=== PATIENT | male | born 1970 | race Two or more races ===

== ENCOUNTER 2019-04-13 16:30 | Emergency (ER) | payer MEDICAID ==
[~2019-04-13] VITALS: Ht 172.7 cm; Wt 83.0 kg
--- NOTE | 2019-04-13 17:38 | NUR ---
Patient to room from lobby at this time
[2019-04-13 18:00] VITALS: BP 125/81
--- NOTE | 2019-04-13 18:00 | NUR ---
pt upright on gurney awake & comfortable, responds approp to staff, NAD, comfort mreasures provided, at BS, call light within reach
[2019-04-13 18:27] LABS: BASOPHILS # (AUTO) 0.04 x10^3/uL (0-0.1); BASOPHILS % (AUTO) 1 % (0-1); EOSINOPHILS # (AUTO) 0.22 x10^3/uL (0-0.4); EOSINOPHILS % (AUTO) 3 % (1-7); LYMPHOCYTES # (AUTO) 1.17 x10^3/uL (1-3.4); LYMPHOCYTES % (AUTO) 16 % (22-44); MD NO; MEAN CORPUSCULAR HEMOGLOBIN 30.7 pg (27.5-34.5); MEAN CORPUSCULAR HGB CONC 32.7 g/dL (33.2-36.2); MONOCYTES # (AUTO) 0.56 x10^3/uL (0.2-0.8); MONOCYTES % (AUTO) 8 % (2-9); NEUTROPHILS # (AUTO) 5.16 x10^3/uL (1.8-6.8); NEUTROPHILS % (AUTO) 72 % (42-75); PLATELET COUNT 187 x10^3/uL (130-400); RED BLOOD COUNT 5.17 x10^6/uL (4.38-5.82); RED CELL DISTRIBUTION WIDTH 13.3 % (9.4-14.8)
[2019-04-13 18:32] LABS: ALBUMIN 3.7 g/dL (3.4-5.0); ANION GAP 7 mmol/L (5-15); CALCIUM 8.6 mg/dL (8.5-10.1); CHLORIDE 111 mmol/L (98-107)
[2019-04-13 18:35] LABS: TROPONIN I < 0.015 ng/mL (0.000-0.045)
--- NOTE | 2019-04-13 18:45 | NUR ---
Patient given discharge instructions and they have confirmed that they understand the instructions. Patient ambulatory with steady gait.
== END 2019-04-13 18:50 | disposition home or self-care (01) ==
LOC: ED 18:01
DX: J20.9 Acute bronchitis, unspecified (principal); Z86.19 Personal history of other infectious and parasitic diseases; Z87.891 Personal history of nicotine dependence; N28.9 Disorder of kidney and ureter, unspecified
CPT/HCPCS: 36415; 71045; 80048; 82040; 84484; 85025; 93005; 99284

== ENCOUNTER 2019-10-20 07:59 | Emergency (ER) | payer MEDICAID ==
[~2019-10-20] VITALS: Ht 172.7 cm; Wt 85.5 kg
[~2019-10-20 07:59] MED LIST: ALLERGY PO
--- NOTE | 2019-10-20 08:10 | NUR ---
THIS IS A 49 YO MALE COMING IN FOR LOWER ABDOMINAL PAIN, DIARRHEA AND VOMITING X1 DAY. PATIENT STATES HE WAS FEELING NAUSEOUS BEFORE DINNER YESTERDAY, THEN AFTER DINNNER VOMITED AND HAD DIARRHEA. PATIENT DENIES ANY FLU LIKE SYMPTOMS, BUT HAS HAD A RECENT COLD WITH CONGESTION AND COUGH. DENIES ANY SURGICAL HX, HX OF HEP C. PATIENT PLACED ON CONTINUOUS SPO2 AT 96%, CYCLE BP Q1HR. DENIES FURTHER NEEDS AT THIS TIME. CALL LIGHT IN REACH.
[2019-10-20] MEDS ORDERED: FAMOTIDINE 20 MG/2 ML ONE (08:24)
[2019-10-20] MEDS ORDERED: MORPHINE SULFATE 4 MG/ML, 1ML ONE (08:24)
[2019-10-20] MEDS ORDERED: METOCLOPRAMIDE 5 MG/ML, 2ML ONE (08:24)
[2019-10-20] MEDS ORDERED: FAMOTIDINE 20 MG/2 ML IV ONE (08:30)
[2019-10-20] MEDS ORDERED: SODIUM CHLORIDE 0.9% 1,000ML IVBOLUS ONE (08:30)
[2019-10-20] MEDS ORDERED: ONDANSETRON 2MG/ML, 2ML IVPush ONE (08:30)
--- NOTE | 2019-10-20 08:38 | NUR ---
STARTED IV, PT TOLERATED WELL. MEDICATED PER ORDERS. PT REFUSED MORPHINE AT THIS TIME. EXPLAINED PLAN OF CARE AND NEED FOR URINE. PT VERBALIZED UNDERSTANDING, VERBALIZED NO NEEDS AT THIS TIME. CALL LIGHT WITHIN PLACE.
[2019-10-20 08:41] LABS: MEAN CORPUSCULAR HEMOGLOBIN 30.5 pg (27.5-34.5); MEAN CORPUSCULAR HGB CONC 32.8 g/dL (33.2-36.2); MEAN CORPUSCULAR VOLUME 92.8 fL (81-97); MEAN PLATELET VOLUME 8.4 fL (7.4-10.4); PLATELET COUNT 160 x10^3/uL (130-400); RED BLOOD COUNT 5.26 x10^6/uL (4.38-5.82); RED CELL DISTRIBUTION WIDTH 13.5 % (9.4-14.8)
[2019-10-20 08:49] LABS: ALBUMIN 3.7 g/dL (3.4-5.0); ANION GAP 3 mmol/L (5-15); CALCIUM 8.5 mg/dL (8.5-10.1); CHLORIDE 114 mmol/L (98-107)
[2019-10-20 08:52] LABS: ALANINE AMINOTRANSFERASE 29 U/L (12-78); ALKALINE PHOSPHATASE 71 U/L (45-117); BILIRUBIN,TOTAL 0.9 mg/dL (0.2-1.0); CREATININE 1.22 mg/dL (0.7-1.3); TOTAL PROTEIN 7.7 g/dL (6.4-8.2)
[2019-10-20 09:07] LABS: BASOPHILS # (AUTO) 0.02 x10^3/uL (0-0.1); BASOPHILS % (AUTO) 0 % (0-1); EOSINOPHILS # (AUTO) 0.14 x10^3/uL (0-0.4); EOSINOPHILS % (AUTO) 2 % (1-7); LYMPHOCYTES # (AUTO) 0.33 x10^3/uL (1-3.4); LYMPHOCYTES % (AUTO) 5 % (22-44); MD SCAN; MONOCYTES # (AUTO) 0.35 x10^3/uL (0.2-0.8); MONOCYTES % (AUTO) 5 % (2-9); NEUTROPHILS # (AUTO) 6.02 x10^3/uL (1.8-6.8); NEUTROPHILS % (AUTO) 88 % (42-75)
--- NOTE | 2019-10-20 09:13 | NUR ---
PATIENT RESTING ON GURNEY, FAMILY AT BEDSIDE, CALL LIGHT IN REACH, DENIES FURTHER NEEDS AT THIS TIME.
--- NOTE | 2019-10-20 09:16 | NUR ---
ULTRASOUND IN ROOM
--- NOTE | 2019-10-20 09:47 | NUR ---
PATIENT AMBULATED TO RESTROOM TO GET UA. BACK ON [facility], ON CONTINUOUS SPO2 AT 97%, CYCLE BP Q1 HR. NEEDS ADDRESSED.
[2019-10-20] MEDS: MORPHINE SULFATE 4 MG/ML, 1ML IVPush PRN ×2 (09:52→10:12)
[2019-10-20] MEDS ORDERED: MAALOX/HYOSCYAMINE/LIDOCAINE 45 ML BTL ONE (09:54)
--- NOTE | 2019-10-20 09:58 | NUR ---
PATIETN MEDICATED PER EMAR, TOLERATED WELL. CALL LIGHT IN REACH, DENIES FURTHER NEEDS.
[2019-10-20] MEDS ORDERED: MAALOX/HYOSCYAMINE/LIDOCAINE 45 ML BTL PO ONE (10:00)
[2019-10-20 10:05] LABS: MICROSCOPIC AUTO
[2019-10-20 10:07] LABS: CULTURE INDICATED? YES
--- NOTE | 2019-10-20 10:40 | NUR ---
Patient given discharge instructions and they have confirmed that they understand the instructions. Patient ambulatory with steady gait.
[2019-10-20 10:41] VITALS: BP 93/54
== END 2019-10-20 10:42 | disposition home or self-care (01) ==
LOC: ED 08:21
DX: K52.9 Noninfective gastroenteritis and colitis, unspecified (principal); Z86.19 Personal history of other infectious and parasitic diseases
CPT/HCPCS: 36415; 76700; 80053; 81001; 83690; 85025; 87086; 96361; 96374; 96375; 99284; J2405; J3490; J7030

== ENCOUNTER 2020-01-03 13:55 | Emergency (ER) | payer SELFPAY ==
[~2020-01-03] VITALS: Ht 172.7 cm; Wt 87.0 kg
[2020-01-03 14:04] VITALS: BP 129/81
--- NOTE | 2020-01-03 14:13 | NUR ---
L flank pain 4/10 & dark urine. No nausea/chills/dysuria. No hx kidney stones. Pt provided w/ urine cup & instructed to provide sample.
[2020-01-03 14:47] LABS: MICROSCOPIC NOT IND
[2020-01-03 14:57] LABS: CULTURE INDICATED? NO
[2020-01-03 15:01] LABS: ALANINE AMINOTRANSFERASE 24 U/L (12-78); ALBUMIN 3.6 g/dL (3.4-5.0); ANION GAP 6 mmol/L (5-15); CALCIUM 8.3 mg/dL (8.5-10.1); CHLORIDE 108 mmol/L (98-107); CREATININE 1.26 mg/dL (0.7-1.3)
[2020-01-03 15:03] LABS: ALKALINE PHOSPHATASE 67 U/L (45-117); BILIRUBIN,TOTAL 0.5 mg/dL (0.2-1.0); TOTAL PROTEIN 7.4 g/dL (6.4-8.2)
[2020-01-03 15:05] LABS: BASOPHILS # (AUTO) 0.04 x10^3/uL (0-0.1); BASOPHILS % (AUTO) 1 % (0-1); EOSINOPHILS # (AUTO) 0.08 x10^3/uL (0-0.4); EOSINOPHILS % (AUTO) 1 % (1-7); LYMPHOCYTES # (AUTO) 1.18 x10^3/uL (1-3.4); LYMPHOCYTES % (AUTO) 19 % (22-44); MD NO; MEAN CORPUSCULAR HEMOGLOBIN 30.6 pg (27.5-34.5); MEAN CORPUSCULAR HGB CONC 33.5 g/dL (33.2-36.2); MEAN CORPUSCULAR VOLUME 91.5 fL (81-97); MEAN PLATELET VOLUME 8.9 fL (7.4-10.4); MONOCYTES # (AUTO) 0.48 x10^3/uL (0.2-0.8); MONOCYTES % (AUTO) 8 % (2-9); NEUTROPHILS # (AUTO) 4.36 x10^3/uL (1.8-6.8); NEUTROPHILS % (AUTO) 71 % (42-75); PLATELET COUNT 160 x10^3/uL (130-400); RED BLOOD COUNT 4.76 x10^6/uL (4.38-5.82); RED CELL DISTRIBUTION WIDTH 13.7 % (9.4-14.8)
--- NOTE | 2020-01-03 15:19 | NUR ---
x-ray results pending.
--- NOTE | 2020-01-03 15:59 | NUR ---
Patient given discharge instructions and they have confirmed that they understand the instructions. Patient ambulatory with steady gait.
== END 2020-01-03 16:00 | disposition home or self-care (01) ==
LOC: ED 15:50
DX: S30.1XXA Contusion of abdominal wall, initial encounter (principal); Z87.891 Personal history of nicotine dependence; X58.XXXA Exposure to other specified factors, initial encounter; Y93.89 Activity, other specified; Y92.89 Other specified places as the place of occurrence of the external cause; Y99.8 Other external cause status
CPT/HCPCS: 36415; 71045; 74018; 80053; 81003; 83690; 85025; 99284

== ENCOUNTER 2020-01-30 20:43 | Emergency (ER) | payer SELFPAY ==
[~2020-01-30] VITALS: Ht 172.7 cm; Wt 88.4 kg
[2020-01-30 21:15] VITALS: BP 137/94
[2020-01-30] MEDS ORDERED: LIDOCAINE 1%, 10ML INFIL ONE (21:30)
[2020-01-30] MEDS ORDERED: DIPH,PERTUSS(ACELL),TET VAC/PF 0.5 ML IM-VACC ONE ×2 (21:30→21:31)
[2020-01-30] MEDS ORDERED: HYDROcodone/APAP 5/325 TABLET PO ONE (21:30)
[2020-01-30] MEDS ORDERED: LIDOCAINE-MPF 1%, 5ML ONE (21:31)
[2020-01-30] MEDS ORDERED: HYDROcodone/APAP 5/325 TABLET ONE (21:31)
[2020-01-30] MEDS ORDERED: NEOSPORIN OINT. PKT 1 PACKET ONE (22:30)
== END 2020-01-30 23:38 | disposition home or self-care (01) ==
LOC: ED 21:36
DX: S62.326A Displaced fracture of shaft of fifth metacarpal bone, right hand, initial encounter for closed fracture (principal); S62.327A Displaced fracture of shaft of fifth metacarpal bone, left hand, initial encounter for closed fracture; S61.214A Laceration without foreign body of right ring finger without damage to nail, initial encounter; X58.XXXA Exposure to other specified factors, initial encounter; Y93.89 Activity, other specified; Y92.098 Other place in other non-institutional residence as the place of occurrence of the external cause; Y99.8 Other external cause status
CPT/HCPCS: 12041; 90471; 90715; 99284

== ENCOUNTER 2020-02-18 17:09 | Emergency (ER) | payer OTHER ==
[~2020-02-18] VITALS: Ht 172.7 cm; Wt 86.4 kg
[2020-02-18 17:15] VITALS: BP 117/86
--- NOTE | 2020-02-18 17:28 | NUR ---
Pt to ER for 4-5 days of sore throat, wheezing, cough unrelieved w/ OTC. No fever, no SOB. No PMH, no distress at this time. Placed on cont. SPO2 & NIBP monitoring. Await ER MD espinal.
--- NOTE | 2020-02-18 18:12 | NUR ---
Awaiting CXR results.
--- NOTE | 2020-02-18 18:21 | NUR ---
Patient given discharge instructions and they have confirmed that they understand the instructions. Patient ambulatory with steady gait.
== END 2020-02-18 18:28 | disposition home or self-care (01) ==
LOC: ED 17:33
DX: J06.9 Acute upper respiratory infection, unspecified (principal); Z86.19 Personal history of other infectious and parasitic diseases; Z87.891 Personal history of nicotine dependence
CPT/HCPCS: 71045; 87081; 87880; 99284

== ENCOUNTER 2020-05-27 16:21 | Emergency (ER) | payer SELFPAY ==
[~2020-05-27] VITALS: Ht 172.7 cm; Wt 86.9 kg
[2020-05-27 17:08] LABS: BASOPHILS # (AUTO) 0.03 x10^3/uL (0-0.1); BASOPHILS % (AUTO) 0 % (0-1); EOSINOPHILS # (AUTO) 0.13 x10^3/uL (0-0.4); EOSINOPHILS % (AUTO) 2 % (1-7); LYMPHOCYTES # (AUTO) 1.21 x10^3/uL (1-3.4); LYMPHOCYTES % (AUTO) 16 % (22-44); MD NO; MEAN CORPUSCULAR HEMOGLOBIN 30.5 pg (27.5-34.5); MEAN CORPUSCULAR HGB CONC 33.3 g/dL (33.2-36.2); MEAN CORPUSCULAR VOLUME 91.7 fL (81-97); MEAN PLATELET VOLUME 8.9 fL (7.4-10.4); MONOCYTES # (AUTO) 0.53 x10^3/uL (0.2-0.8); MONOCYTES % (AUTO) 7 % (2-9); NEUTROPHILS # (AUTO) 5.48 x10^3/uL (1.8-6.8); NEUTROPHILS % (AUTO) 74 % (42-75); PLATELET COUNT 166 x10^3/uL (130-400); RED BLOOD COUNT 5.01 x10^6/uL (4.38-5.82); RED CELL DISTRIBUTION WIDTH 13.5 % (9.4-14.8)
[2020-05-27 17:19] LABS: ALANINE AMINOTRANSFERASE 26 U/L (12-78); ANION GAP 10 mmol/L (5-15); CALCIUM 8.8 mg/dL (8.5-10.1); CHLORIDE 109 mmol/L (98-107); CREATININE 1.23 mg/dL (0.7-1.3)
[2020-05-27 17:22] LABS: ALKALINE PHOSPHATASE 75 U/L (45-117); BILIRUBIN,TOTAL 0.8 mg/dL (0.2-1.0); TOTAL PROTEIN 8.1 g/dL (6.4-8.2)
--- NOTE | 2020-05-27 18:36 | NUR ---
DISPOSAL OPERATOR: PT STEADY UPON AMBULATION TO ROOM FROM LOBBY AT THIS TIME.
[2020-05-27 19:33] VITALS: BP 129/93
== END 2020-05-27 19:52 | disposition home or self-care (01) ==
LOC: ED 19:45
DX: S39.012A Strain of muscle, fascia and tendon of lower back, initial encounter (principal); K64.8 Other hemorrhoids; R10.32 Left lower quadrant pain; X58.XXXA Exposure to other specified factors, initial encounter; Y93.89 Activity, other specified; Y92.89 Other specified places as the place of occurrence of the external cause; Y99.8 Other external cause status; Z87.891 Personal history of nicotine dependence
CPT/HCPCS: 36415; 80053; 83690; 85025; 99283

== ENCOUNTER 2020-10-12 11:32 | Emergency (ER) | payer OTHER ==
[~2020-10-12] VITALS: Ht 172.7 cm; Wt 92.1 kg
--- NOTE | 2020-10-12 13:00 | NUR ---
PT SITTING UPRIGHT ON GURNEY WATCHING TV. CONTINUOUS PULSE OX AND TEXTILE SCREEN PRINTER IN PLACE. NO ADDITIONAL NEEDS AT THIS TIME. CALL LIGHT WITHIN REACH. WILL CONTINUE TO MONITOR. ERP AT BEDSIDE
[2020-10-12] MEDS ORDERED: CEFTRIAXONE 1,000 MG ONE (13:22)
[2020-10-12] MEDS ORDERED: AZITHROMYCIN 500 MG TABLET ONE (13:22)
[2020-10-12] MEDS ORDERED: CEFTRIAXONE 1,000 MG IM ONE (13:30)
[2020-10-12] MEDS ORDERED: AZITHROMYCIN 500 MG TABLET PO ONE (13:30)
[2020-10-12 13:46] VITALS: BP 115/71
--- NOTE | 2020-10-12 14:00 | NUR ---
Patient given discharge and isolation instructions and they have confirmed that they understand the instructions. Patient ambulatory with steady gait.
== END 2020-10-12 14:02 | disposition home or self-care (01) ==
LOC: ED 13:55
DX: U07.1 COVID-19 (principal); J12.9 Viral pneumonia, unspecified; B34.9 Viral infection, unspecified
CPT/HCPCS: 71045; 87635; 93005; 96372; 99285; J0696